=== PATIENT | female | born 1995 | race Hispanic/Latino ===

== ENCOUNTER 2017-07-18 22:37 | Emergency (ER) | payer OTHER ==
[~2017-07-18] VITALS: Ht 157.5 cm; Wt 63.0 kg
--- OUTSIDE RECORDS SUMMARY | 2017-07-18 22:41 | XMS REPORT | Summary of Care ---
Author Author Iwona Gracia M.A. Unknown Address Unknown Phone Unavailable Care Team Providers Care Rn Quality Name Role Phone ELICIA LOREDO M.D. Unavailable Unavailable JOSE ANTONIO WINSLOW MD, ORALIA SOARES Unavailable Unavailable Functional Status Name Dates Details Functional status health issues are not documented Status: Name Dates Details Cognitive status health issues are not documented Status: Problems Name Dates Details Active medical history not documented Status: Medications Name Dates Details Concerta TBCR Active Allergies and Adverse Reactions Name Dates Details No Known Drug Allergies (Allergy) Status: Active Past Medical History Name Dates Details History of asthma (V12.69, Z87.09) Status: Resolved History of Depressive disorder (311, F32.9) Status: Resolved Procedures Procedure Dates Details Procedures not documented Immunization Name Dates Details Immunizations not documented Family History Name Dates Details Family history of malignant neoplasm (V16.9, Z80.9) Comments: Family History Status: Active Social History Name Dates Details - Status: Name Dates Details Never smoker Vital Signs Date Test Result Details [id number] BP Systolic 110 mm[Hg] Status: BP Diastolic 58 mm[Hg] Status: Height 62 in Status: Weight 145 lb Status: Body Mass Index Calculated 26.52 kg/m2 Status: Body Surface Area Calculated 1.67 m2 Status: Heart Rate 78 /min Status: Results Date Description Value Details Results not documented Plan of Care Name Dates Details Planned Observations Planned Goals not documented Instructions Name Dates Details Instructions not documented Encounters Appointment; ELICIA LOREDO M.D. Encounter Diagnosis: Problem not documented On: 22-Apr-2017 14:00
[2017-07-18] MEDS ORDERED: CLINDAMYCIN PHOS 600 MG/ 4 ML VIAL IM ONE (23:00)
[2017-07-18] MEDS ORDERED: ONDANSETRON HCL 4 MG ORAL DISINTEGRATING TAB PO ONE (23:00)
[2017-07-18] MEDS ORDERED: BELLADONNA ALK/PHENOBARBITAL 5 ML UDC PO ONE (23:00)
[2017-07-18 23:30] VITALS: BP 135/75
== END 2017-07-18 23:28 | disposition home or self-care (01) ==
LOC: FSED 22:37
DX: R11.2 Nausea with vomiting, unspecified (principal); R19.7 Diarrhea, unspecified
CPT/HCPCS: 96372; 99282

== ENCOUNTER 2017-09-16 01:32 | Emergency (ER) | payer OTHER ==
[~2017-09-16] VITALS: Ht 157.5 cm; Wt 65.9 kg
--- OUTSIDE RECORDS SUMMARY | 2017-09-16 01:34 | XMS REPORT | Continuity of Care Document ---
Author Author [facility] Organization [facility] Address [address] [place] [address] Phone Unavailable Care Team Providers Care Inspection Clerk Name Role Phone NO, PCP PCP Unavailable Advance Directives No advance directive information available. Problems No problem information available. Medications No medication information available. Social History No social history information available. Hospital Discharge Instructions No hospital discharge instruction information available. Plan of Care Discharge Date 07/18/17 11:28pm Disposition HOME, SELF-CARE Condition at Discharge Stable Instructions/Education Provided Food Poisoning - Adult Forms Provided Work/School Excuse Prescriptions See Medication Section Additional Instructions/Education Discussed diagnosis of possible food poisoning with patient and recommend medical therapy with FOLLOW UP MD if no better in 2-4 days. Functional Status No functional status information available. Allergies, Adverse Reactions, Alerts No known allergies. Immunizations No immunization information available. Vital Signs Acute Vital Signs Vital Response Date/Time Pulse Pulse Rate (adult) 72 bpm (60 - 90) 07/18/2017 11:30pm Respiratory Rate 16 bpm (12 - 24) 07/18/2017 11:30pm Blood Pressure 135/75 mm Hg 07/18/2017 11:30pm Height 5 ft 2 in 07/18/2017 10:37pm Weight 139 lb 07/18/2017 10:37pm Body Mass Index 25.4 kg/m^2 07/18/2017 10:37pm Results No relevant diagnostic test, laboratory data and/or discharge summary information available. Procedures No procedure information available. Encounters Encounter Location Arrival/Admit Date Discharge/Depart Date Attending Provider Departed Emergency Room [facility] 07/18/17 10:37pm 07/18 11:28pm ELICIA KHANNA MD
[2017-09-16] MEDS ORDERED: CONCERTA54 MG PO (01:51)
== END 2017-09-16 02:08 | disposition home or self-care (01) ==
LOC: FSED 01:32
DX: F41.1 Generalized anxiety disorder (principal)
CPT/HCPCS: 99282